=== PATIENT | female | born 1975 | race Caucasian/White ===

== ENCOUNTER 2020-01-03 12:59 | Outpatient (CLI) | payer BC, SELFPAY ==
--- NOTE | 2020-01-04 10:31 | WPDNEUROLOGY ---
Neurology EEG Report General Information Date of Study: 01/03/20 TEST eeg DIAGNOSIS seizures CONDITION OF RECORDING Awake, drowsy and sleep EEG NUMBER [id number] CLINICAL HISTORY patient reported, she was diagnosed with epilepsy when she was 4 years old but now the seizures are well controlled and she wants to get off the medication. EEG DESCRIPTION basic resting occipital frequency consists of medium voltage 8 to 10 hertz per second well-organized alpha admixed with minimal amount of low-voltage 15 to 18 hertz per second beta. During drowsiness low-voltage beta activityis seen diffusely admixed with waxing and waning posterior alpha rhythm. Bilateral symmetrical sleep activity seen during sleep. Hyperventilation not done, photic stimulation not done. Non paroxysmal nonfocal nonlateralizing IMPRESSION normal record
== END 2020-01-03 13:00 | disposition home or self-care (01) ==
LOC: ANHNEURO 13:02
PROVIDERS: Visit Provider Psychiatry & Neurology Neurology
DX: R56.9 Unspecified convulsions (principal)
CPT/HCPCS: 95816